=== PATIENT | female | born 1965 | race Caucasian/White ===

== ENCOUNTER 2017-01-13 23:31 | Emergency (ER) | payer BC, OTHER ==
[2017-01-13] MEDS ORDERED: Sodium Chloride 0.9% 1,000 ML IV SCH (23:45)
--- NOTE | 2017-01-13 23:47 | EDM.PDOC ---
ED HPI GENERAL MEDICAL PROBLEM - General Chief Complaint: Headache Stated Complaint: MIGRAINE Time Seen by Provider: 01/13/17 23:44 - History of Present Illness INITIAL COMMENTS - FREE TEXT/NARRATIVE: HISTORY AND PHYSICAL: History of present illness: Patient 51-year-old female with history of migraine headaches presents with a migraine headache there is associated photophobia nausea she denies any trauma denies fever chills neck pain stiffness or other concern Review of systems: As per history of present illness and below otherwise all systems reviewed and negative. Past medical history: As per history of present illness and as reviewed below otherwise noncontributory. Surgical history: As per history of present illness and as reviewed below otherwise noncontributory. Social history: No reported history of drug or alcohol abuse. Family history: As per history of present illness and as reviewed below otherwise noncontributory. Physical exam: HEENT: Atraumatic, normocephalic, pupils reactive, negative for conjunctival pallor or scleral icterus, mucous membranes moist, throat clear, neck supple, nontender, trachea midline. Lungs: Clear to auscultation, breath sounds equal bilaterally, chest nontender. Heart: S1S2, regular, negative for clicks, rubs, or JVD. Abdomen: Soft, nondistended, nontender. Negative for masses or hepatosplenomegaly. Negative for costovertebral tenderness. Pelvis: Stable nontender. Genitourinary: Deferred. Rectal: Deferred. Extremities: Atraumatic, negative for cords or calf pain. Neurovascular unremarkable. Neuro: Awake, alert, oriented. Cranial nerves II through XII unremarkable. Cerebellum unremarkable. Motor and sensory unremarkable throughout. Exam nonfocal. Diagnostics: None Therapeutics: Normal saline 1 L bolus Reglan 10 mg IV Zofran 4 mg IV Toradol 30 mg IV Benadryl 50 mg IV Impression: #1 migraine headache Definitive disposition and diagnosis as appropriate pending reevaluation and review of above. Headache Pain Score (Numeric/FACES): 10 - Related Data Allergies Allergy/AdvReac Type Severity Reaction Status Date / Time morphine Allergy Hives Verified 01/13/17 23:44 Home Meds: Home Meds SUMAtriptan Succinate [Imitrex] 100 mg PO ASDIRECTED PRN 01/13/17 [History] ED ROS GENERAL - Review of Systems Review Of Systems: ROS reveals no pertinent complaints other than HPI. ED EXAM, GENERAL - Physical Exam Exam: See Below (See dictation) Course - Vital Signs Last Recorded V/S: Last Vital Signs Temp 36.8 C 01/13/17 23:33 Pulse 67 01/13/17 23:33 Resp 16 01/13/17 23:33 BP 156/70 H 01/13/17 23:33 Pulse Ox 99 01/13/17 23:33 Departure - Departure Time of Disposition: 23:46 Disposition: Home, Self-Care 01 Condition: good Clinical Impression: Migraine Forms: ED Department Discharge Additional Instructions: The following information is given to patients seen in the emergency department who are being discharged to home. This information is to outline your options for follow-up care. We provide all patients seen in our emergency department with a follow-up referral. The need for follow-up, as well as the timing and circumstances, are variable depending upon the specifics of your emergency department visit. If you don't have a primary care physician on staff, we will provide you with a referral. We always advise you to contact your personal physician following an emergency department visit to inform them of the circumstance of the visit and for follow-up with them and/or the need for any referrals to a consulting specialist. The emergency department will also refer you to a specialist when appropriate. This referral assures that you have the opportunity for followup care with a specialist. All of these measure are taken in an effort to provide you with optimal care, which includes your followup. Under all circumstances we always encourage you to contact your private physician who remains a resource for coordinating your care. When calling for followup care, please make the office aware that this follow-up is from your recent emergency room visit. If for any reason you are refused follow-up, please contact the [facility] emergency department at and asked to speak to the emergency department charge nurse. Followup primary medical doctor one to 2 days return as needed as discussed
[2017-01-13] MEDS ORDERED: Ondansetron 4 MG/2 ML SDV IVPUSH ONE (23:51)
[2017-01-13] MEDS ORDERED: Metoclopramide 10 MG/2 ML SDV IVPUSH ONE (23:51)
[2017-01-13] MEDS ORDERED: diphenhydrAMINE 50 MG/ML SDV IVPUSH ONE (23:51)
[2017-01-13] MEDS ORDERED: Ketorolac 30 MG/ML SDV IVPUSH ONE (23:51)
[2017-01-14 00:49] VITALS: BP 120/61
== END 2017-01-14 00:52 | disposition home or self-care (01) ==
LOC: MW.ED 23:31
DX: G43.909 Migraine, unspecified, not intractable, without status migrainosus (principal); Z88.5 Allergy status to narcotic agent
CPT/HCPCS: 96361; 96374; 96375; 99283; J1200; J1885; J2405; J2765; J7040; 99284

== ENCOUNTER 2017-09-18 14:47 | Emergency (ER) | payer BC ==
[2017-09-18] MEDS ORDERED: HYDROmorphone 1 MG/ML Syringe IM ONE (15:10)
[2017-09-18] MEDS ORDERED: Ondansetron 4 MG Tab.DIS PO ONE (15:10)
[2017-09-18] MEDS ORDERED: Ketorolac 60 MG/2 ML SDV IM ONE (15:46)
--- NOTE | 2017-09-18 16:18 | EDM.PDOC ---
ED HPI GENERAL MEDICAL PROBLEM - General Chief Complaint: Headache Stated Complaint: headache Time Seen by Provider: 09/18/17 14:49 Source of Information: Reports: Patient History Limitations: Reports: No Limitations - History of Present Illness INITIAL COMMENTS - FREE TEXT/NARRATIVE: The following information is given to patients seen in the emergency department who are being discharged to home. This information is to outline your options for follow-up care. We provide all patients seen in our emergency department with a follow-up referral. The need for follow-up, as well as the timing and circumstances, are variable depending upon the specifics of your emergency department visit. If you don't have a primary care physician on staff, we will provide you with a referral. We always advise you to contact your personal physician following an emergency department visit to inform them of the circumstance of the visit and for follow-up with them and/or the need for any referrals to a consulting specialist. The emergency department will also refer you to a specialist when appropriate. This referral assures that you have the opportunity for follow-up care with a specialist. All of these measure are taken in an effort to provide you with optimal care, which includes your follow-up. Under all circumstances we always encourage you to contact your private physician who remains a resource for coordinating your care. When calling for follow-up care, please make the office aware that this follow-up is from your recent emergency room visit. If for any reason you are refused follow-up, please contact the [facility] Emergency Department at and asked to speak to the emergency department charge nurse. Follow up with primary care and return if symptoms worsen or change. 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: Neurological History: Reports: Migraines - Infectious Disease History Infectious Disease History: Reports: Chicken Pox, Scarlet Fever - Past Surgical History Female Surgical History: Reports: Section, Hysterectomy, Tubal Ligation, Other (See Below) Social & Family History - Family History Family Medical History: Noncontributory - Tobacco Use Smoking Status *Q: Never Smoker Years of Tobacco use: 20 Packs/Tins Daily: 1 - Caffeine Use Caffeine Use: Reports: Soda Caffeine Use Comment: 1-2 daily - Recreational Drug Use Recreational Drug Use: No ED ROS GENERAL - Review of Systems Review Of Systems: See Below (See history of present illness) - Physical Exam Exam: See Below (See history of present illness) Course - Vital Signs Last Recorded V/S: Last Vital Signs Temp 97.0 F 09/18/17 15:02 Pulse 100 09/18/17 15:02 Resp 16 09/18/17 15:02 BP 127/92 H 09/18/17 15:02 Pulse Ox 95 09/18/17 15:02 - Orders/Labs/Meds Meds: Medications Discontinued Medications Generic Name Dose Route Start Last Admin Trade Name Freq PRN Reason Stop Dose Admin Hydromorphone HCl 1 mg 09/18/17 15:10 09/18/17 15:29 Dilaudid IM 09/18/17 15:11 1 mg ONETIME ONE Administration Ketorolac Tromethamine 60 mg 09/18/17 15:46 09/18/17 16:09 Toradol IM 09/18/17 15:47 60 mg ONETIME ONE Administration Ondansetron HCl 4 mg 09/18/17 15:10 09/18/17 15:28 Zofran Odt PO 09/18/17 15:11 4 mg ONETIME ONE Administration Departure - Departure Time of Disposition: 16:18 Disposition: Home, Self-Care 01 Condition: Good Clinical Impression: Migraine headache Qualifiers: Migraine type: unspecified Status migrainosus presence: without status migrainosus Intractability: not intractable Qualified Code(s): G43.909 - Migraine, unspecified, not intractable, without status migrainosus - Discharge Information Referrals: PCP,None [Primary Care Provider] - Additional Instructions: The following information is given to patients seen in the emergency department who are being discharged to home. This information is to outline your options for follow-up care. We provide all patients seen in our emergency department with a follow-up referral. The need for follow-up, as well as the timing and circumstances, are variable depending upon the specifics of your emergency department visit. If you don't have a primary care physician on staff, we will provide you with a referral. We always advise you to contact your personal physician following an emergency department visit to inform them of the circumstance of the visit and for follow-up with them and/or the need for any referrals to a consulting specialist. The emergency department will also refer you to a specialist when appropriate. This referral assures that you have the opportunity for follow-up care with a specialist. All of these measure are taken in an effort to provide you with optimal care, which includes your follow-up. Under all circumstances we always encourage you to contact your private physician who remains a resource for coordinating your care. When calling for follow-up care, please make the office aware that this follow-up is from your recent emergency room visit. If for any reason you are refused follow-up, please contact the [facility] Emergency Department at and asked to speak to the emergency department charge nurse. Follow-up with primary care as directed [facility] [address] [place] [id number]
[2017-09-18 16:58] VITALS: BP 121/75
== END 2017-09-18 16:30 | disposition home or self-care (01) ==
LOC: MW.ED 14:47
DX: G43.909 Migraine, unspecified, not intractable, without status migrainosus (principal); Z88.5 Allergy status to narcotic agent
CPT/HCPCS: 96372; 99284; A9270; J1170; J1885; 99282

== ENCOUNTER 2018-12-04 16:18 | Emergency (ER) | payer BC ==
--- NOTE | 2018-12-04 17:18 | EDM.PDOC ---
ED HPI GENERAL MEDICAL PROBLEM - General Chief Complaint: Skin Complaint Stated Complaint: INJURED FINGER Time Seen by Provider: 12/04/18 17:18 Source of Information: Reports: Patient History Limitations: Reports: No Limitations - History of Present Illness INITIAL COMMENTS - FREE TEXT/NARRATIVE: HISTORY AND PHYSICAL: History of present illness: Patient is a 53-year-old female here with complaint of left ring finger infection. She states it started 6 days ago, was seen in [place] and started on Augmentin. She states it has not gotten better. She did have a small amount of purulent fluid expressed from it. She denies injury, fevers, or chills. Review of systems: As per history of present illness and below otherwise all systems reviewed and negative. Past medical history: As per history of present illness and as reviewed below otherwise noncontributory. Surgical history: As per history of present illness and as reviewed below otherwise noncontributory. Social history: No reported history of drug or alcohol abuse. Family history: As per history of present illness and as reviewed below otherwise noncontributory. Physical exam: General: Patient sitting comfortably in no acute distress and nontoxic appearing HEENT: Atraumatic, normocephalic, pupils reactive, negative for conjunctival pallor or scleral icterus, mucous membranes moist, throat clear, neck supple, nontender, trachea midline. No meningeal signs. Lungs: Clear to auscultation, breath sounds equal bilaterally, chest nontender. Heart: S1S2, regular, negative for clicks, rubs, or overt murmur. Abdomen: Soft, nondistended, nontender. Negative for masses or hepatosplenomegaly. Negative for costovertebral tenderness. Pelvis: Stable nontender. Genitourinary: Deferred. Rectal: Deferred. Extremities: Left distal ring finger is erythematous and swollen around the base of the nail. There is no drainage noted. No distinct area of fluctuance. Atraumatic, negative for cords or calf pain. Neurovascular unremarkable. Neuro: Awake, alert, oriented. Cranial nerves II through XII unremarkable. Cerebellum unremarkable. Motor and sensory unremarkable throughout. Exam nonfocal. Notes: Diagnostics: x-ray left ring finger Therapeutics: 1g Rocephin IM Prescriptions: Bactrim Impression: Finger cellulitis Plan: 1. Take antibiotic as instructed. Warm soaks and tylenol or motrin as needed. 2. Follow up with primary care provider 3. Return to ED as needed as discussed Definitive disposition and diagnosis as appropriate pending reevaluation and review of above. 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 ED EXAM, SKIN/RASH Exam: See Below (see dictation) Course - Vital Signs Last Recorded V/S: Last Vital Signs Temp 97.2 F 12/04/18 17:13 Pulse 88 12/04/18 17:13 Resp 18 12/04/18 17:13 BP 109/72 12/04/18 17:13 Pulse Ox 98 12/04/18 17:13 - Orders/Labs/Meds Orders: Active Orders 24 hr Category Date Time Status Fingers Fourth Digit Lt F3 [CR] Stat Exams 12/04/18 17:22 Taken Departure - Departure Time of Disposition: 18:53 Disposition: Home, Self-Care 01 Condition: Good Clinical Impression: Cellulitis, finger - Discharge Information Prescriptions: Sulfamethoxazole/Trimethoprim [Bactrim Ds Tablet] 1 each PO BID 7 Days #14 tablet Referrals: PCP,Unknown [Primary Care Provider] - Forms: ED Department Discharge Additional Instructions: The following information is given to patients seen in the emergency department who are being discharged to home. This information is to outline your options for follow-up care. We provide all patients seen in our emergency department with a follow-up referral. The need for follow-up, as well as the timing and circumstances, are variable depending upon the specifics of your emergency department visit. If you don't have a primary care physician on staff, we will provide you with a referral. We always advise you to contact your personal physician following an emergency department visit to inform them of the circumstance of the visit and for follow-up with them and/or the need for any referrals to a consulting specialist. The emergency department will also refer you to a specialist when appropriate. This referral assures that you have the opportunity for follow-up care with a specialist. All of these measure are taken in an effort to provide you with optimal care, which includes your follow-up. Under all circumstances we always encourage you to contact your private physician who remains a resource for coordinating your care. When calling for follow-up care, please make the office aware that this follow-up is from your recent emergency room visit. If for any reason you are refused follow-up, please contact the [facility] Emergency Department at and asked to speak to the emergency department charge nurse. [facility] [address] [place] [id number] [place] [address] 1. Take antibiotic as instructed. Warm soaks and tylenol or motrin as needed. 2. Follow up with primary care provider 3. Return to ED as needed as discussed - My Orders Last 24 Hours: My Active Orders 12/04/18 17:22 Fingers Fourth Digit Lt F3 [CR] Stat - Assessment/Plan Last 24 Hours: My Active Orders 12/04/18 17:22 Fingers Fourth Digit Lt F3 [CR] Stat
[2018-12-04] MEDS ORDERED: cefTRIAXone 1 GM in Lidocaine 1% 4 ML IM ONE (18:51)
[2018-12-04 19:40] VITALS: BP 122/70
--- NOTE | 2018-12-05 12:05 | CR ---
EXAM DATE: 12/04/18 PATIENT'S AGE: 53 Patient: ALLISON GARRETT Facility: [place], [place] Site . Site : [id number] Study: XRay Extremity Left 4th digit [id number]/[id number] 5:50:40 PM Ordering Physician: Doctor Kemp Final Report: Indication: Redness and swelling Technique: Left 4th finger 3 views Comparison: None Findings: Bones: Alignment is normal. No fractures or bone lesions. Joint spaces: Unremarkable. Soft tissues: Unremarkable. Impression: Unremarkable left 4th finger. No finding to explain redness and swelling. Dictated by Juliano Smith MD @ Dec 04 2018 6:23PM (Electronic Signature) Report Signed by Proxy. SYLVESTER
== END 2018-12-04 19:37 | disposition home or self-care (01) ==
LOC: MW.ED 16:18
DX: L03.012 Cellulitis of left finger (principal); Z88.5 Allergy status to narcotic agent; Z79.899 Other long term (current) drug therapy
CPT/HCPCS: 73140; 96372; 99283; J0696; J2001; 99282

== ENCOUNTER 2019-06-11 07:02 | Emergency (ER) | payer BC ==
[2019-06-11 07:12] VITALS: BP 177/140
== END 2019-06-11 07:26 | disposition left against medical advice (07) ==
LOC: MW.ED 07:02
DX: Z53.21 Procedure and treatment not carried out due to patient leaving prior to being seen by health care provider (principal)

== ENCOUNTER 2019-09-15 17:55 | Emergency (ER) | payer BC ==
[2019-09-15] MEDS ORDERED: Metoclopramide 10 MG/2 ML SDV IV ONE (18:17)
[2019-09-15] MEDS ORDERED: diphenhydrAMINE 50 MG/ML SDV IVPUSH ONE (18:17)
[2019-09-15] MEDS ORDERED: Sodium Chloride 0.9% 1,000 ML IV ONE (18:17)
[2019-09-15] MEDS ORDERED: Ketorolac 30 MG/ML SDV IVPUSH ONE (18:17)
[2019-09-15] MEDS ORDERED: Ondansetron 4 MG/2 ML SDV IVPUSH ONE (18:17)
--- NOTE | 2019-09-15 19:00 | EDM.PDOC ---
ED HPI GENERAL MEDICAL PROBLEM - General Chief Complaint: Headache Stated Complaint: HEADACHE Time Seen by Provider: 09/15/19 18:10 Source of Information: Reports: Patient History Limitations: Reports: No Limitations - History of Present Illness INITIAL COMMENTS - FREE TEXT/NARRATIVE: HISTORY AND PHYSICAL: History of present illness: Patient is a 53-year-old female presents to the ED today with concern of migraine headache since last night. Patient states she has taken her sumatriptan at home without relief of symptoms. Patient states her migraine is her usual type migraine and just hasn't gone away with medication at home. Patient states she has not taken any other medication other than the sumatriptan at home. Patient states she does have photophobia and some nausea which is typical of her migraine headaches. Patient denies any other symptoms or concerns. Patient denies fever, chills, chest pain, shortness of breath, or cough. Denies neck stiff ness, change in vision, syncope, or near syncope. Denies nausea, vomiting, abdominal pain, diarrhea, constipation, or dysuria. Has not noted any blood in urine or stool. Patient has been eating and drinking appropriately. Review of systems: As per history of present illness and below otherwise all systems reviewed and negative. Past medical history: As per history of present illness and as reviewed below otherwise noncontributory. Surgical history: As per history of present illness and as reviewed below otherwise noncontributory. Social history: See social history for further information Family history: As per history of present illness and as reviewed below otherwise noncontributory. Physical exam: General: Patient is alert, oriented, and in no acute distress. Patient laying comfortably on exam table. HEENT: Atraumatic, normocephalic, pupils equal and reactive bilaterally, negative for conjunctival pallor or scleral icterus, mucous membranes moist, TMs normal bilaterally, throat clear, neck supple, nontender, trachea midline. No drooling or trismus noted. No meningeal signs. No hot potato voice noted. Lungs: Clear to auscultation, breath sounds equal bilaterally, chest nontender. Heart: S1S2, regular rate and rhythm without overt murmur Abdomen: Soft, nondistended, nontender. Negative for masses or hepatosplenomegaly. Negative for costovertebral tenderness. Pelvis: Stable nontender. Genitourinary: Deferred. Rectal: Deferred. Skin: Intact, warm, dry. No lesions or rashes noted. Extremities: Atraumatic, negative for cords or calf pain. Neurovascular unremarkable. Neuro: Awake, alert, oriented. Cranial nerves II through XII unremarkable. Cerebellum unremarkable. Motor and sensory unremarkable throughout. Exam nonfocal. Notes: Patient expresses resolution of her migraine headache today in the ED. Discussed the importance for follow-up with her primary care provider or neurologist. Voices understanding and is agreeable to plan of care. Denies any further questions or concerns at this time. Diagnostics: None Therapeutics: Saline, Toradol, Zofran (Patient declines Reglan and Benadryl) Prescription: None Impression: Migraine headache Plan: 1. You can alternate ibuprofen and Tylenol as directed for pain and discomfort. 2. Encourage small but frequent sips of fluid to prevent dehydration. 3. Follow up with her primary care provider or neurologist as discussed. Return to the ED as needed and as discussed. Definitive disposition and diagnosis as appropriate pending reevaluation and review of above. 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: Neurological History: Reports: Migraines Psychiatric History: Reports: Anxiety, Depression - Infectious Disease History Infectious Disease History: Reports: Chicken Pox, Measles, Mumps - Past Surgical History HEENT Surgical History: Reports: Eye Surgery Female Surgical History: Reports: Section, Hysterectomy, Tubal Ligation, Other (See Below) Social & Family History - Family History Family Medical History: Noncontributory - Caffeine Use Caffeine Use: Reports: Soda Caffeine Use Comment: 1-2 daily - Recreational Drug Use Recreational Drug Use: No ED ROS GENERAL - Review of Systems Review Of Systems: Comprehensive ROS is negative, except as noted in HPI. ED EXAM, GENERAL - Physical Exam Exam: See Below (see dictation) Course - Vital Signs Last Recorded V/S: Last Vital Signs Temp 97.0 F 09/15/19 18:11 Pulse 73 09/15/19 18:11 Resp 18 09/15/19 18:11 BP 137/71 09/15/19 18:11 Pulse Ox 96 09/15/19 18:11 - Orders/Labs/Meds Meds: Medications Discontinued Medications Generic Name Dose Route Start Last Admin Trade Name Choco PRN Reason Stop Dose Admin Diphenhydramine HCl 50 mg 09/15/19 18:17 09/15/19 18:44 Benadryl IVPUSH 09/15/19 18:18 Not Given ONETIME ONE Sodium Chloride 1,000 mls @ 999 mls/hr 09/15/19 18:17 09/15/19 18:41 Normal Saline IV 09/15/19 19:17 999 mls/hr STAT ONE Administration Ketorolac Tromethamine 30 mg 09/15/19 18:17 09/15/19 18:40 Toradol IVPUSH 09/15/19 18:18 30 mg ONETIME ONE Administration Metoclopramide HCl 10 mg 09/15/19 18:17 09/15/19 18:44 Reglan IV 09/15/19 18:18 Not Given ONETIME ONE Ondansetron HCl 4 mg 09/15/19 18:17 09/15/19 18:40 Zofran IVPUSH 09/15/19 18:18 4 mg ONETIME ONE Administration Departure - Departure Time of Disposition: 19:38 Disposition: Home, Self-Care 01 Clinical Impression: Migraine headache Qualifiers: Migraine type: unspecified Status migrainosus presence: without status migrainosus Intractability: not intractable Qualified Code(s): G43.909 - Migraine, unspecified, not intractable, without status migrainosus - Discharge Information Referrals: Mariana Dumas MD [Primary Care Provider] - Forms: ED Department Discharge Additional Instructions: The following information is given to patients seen in the emergency department who are being discharged to home. This information is to outline your options for follow-up care. We provide all patients seen in our emergency department with a follow-up referral. The need for follow-up, as well as the timing and circumstances, are variable depending upon the specifics of your emergency department visit. If you don't have a primary care physician on staff, we will provide you with a referral. We always advise you to contact your personal physician following an emergency department visit to inform them of the circumstance of the visit and for follow-up with them and/or the need for any referrals to a consulting specialist. The emergency department will also refer you to a specialist when appropriate. This referral assures that you have the opportunity for follow-up care with a specialist. All of these measure are taken in an effort to provide you with optimal care, which includes your follow-up. Under all circumstances we always encourage you to contact your private physician who remains a resource for coordinating your care. When calling for follow-up care, please make the office aware that this follow-up is from your recent emergency room visit. If for any reason you are refused follow-up, please contact the [facility] Emergency Department at and asked to speak to the emergency department charge nurse. [facility] [address] [place] [id number] [place] [address] 1. You can alternate ibuprofen and Tylenol as directed for pain and discomfort. 2. Encourage small but frequent sips of fluid to prevent dehydration. 3. Follow up with her primary care provider or neurologist as discussed. Return to the ED as needed and as discussed.
[2019-09-15 21:16] VITALS: BP 113/41; PULSE 67
== END 2019-09-15 19:50 | disposition home or self-care (01) ==
LOC: MW.ED 17:55
DX: G43.909 Migraine, unspecified, not intractable, without status migrainosus (principal); F41.9 Anxiety disorder, unspecified; F32.9 Major depressive disorder, single episode, unspecified; Z88.5 Allergy status to narcotic agent; Z79.899 Other long term (current) drug therapy
CPT/HCPCS: 96361; 96374; 96375; 99284; J1885; J2405; J7030; 99283

== ENCOUNTER 2019-11-12 07:14 | Day surgery (SDC) | payer BC ==
[~2019-11-12 07:14] MED LIST: Lactated Ringers 1,000 ML IV SCH; Midazolam 1 MG/ML 2 ML SDV ONE; Propofol 200 MG/20 ML SDV ONE; Sodium Chloride 0.9% 10 ML SDV IV PRN; Sodium Chloride 0.9% 10 ML Syringe FLUSH PRN; Sodium Chloride 0.9% 2.5 ML Syringe FLUSH PRN
--- NOTE | 2019-11-12 08:10 | PCM.PREANE ---
Preanesthetic Assessment - Anesthesia/Transfusion/Family Hx Anesthesia History: Prior Anesthesia Without Reaction Family History of Anesthesia Reaction: No Transfusion History: No Prior Transfusion(s) - Review of Systems General: No Symptoms Pulmonary: No Symptoms Cardiovascular: No Symptoms Gastrointestinal: No Symptoms Neurological: No Symptoms Other: Reports: None - Physical Assessment Vital Signs: Last Vital Signs Temp 97.2 F 11/12/19 07:32 Pulse 85 11/12/19 07:32 Resp 16 11/12/19 07:32 BP 131/71 11/12/19 07:32 Pulse Ox 98 11/12/19 07:32 Height: 5 ft 6 in Weight: 81.647 kg ASA Class: 2 Mental Status: Alert & Oriented x3 Airway Class: Mallampati = 2 Dentition: Reports: Normal Dentition ROM/Head Extension: Full Lungs: Clear to Auscultation, Normal Respiratory Effort Cardiovascular: Regular Rate, Regular Rhythm - Allergies Allergies/Adverse Reactions: Allergies Allergy/AdvReac Type Severity Reaction Status Date / Time morphine Allergy Hives Verified 11/12/19 07:49 mushroom Allergy Swelling Verified 11/12/19 07:49 - Blood Blood Available: No - Anesthesia Plan Pre-Op Medication Ordered: None - Acknowledgements Anesthesia Type Planned: General Anesthesia Pt an Appropriate Candidate for the Planned Anesthesia: Yes Alternatives and Risks of Anesthesia Discussed w Pt/Guardian: Yes Pt/Guardian Understands and Agrees with Anesthesia Plan: Yes Additional Comments: PMH: adhd, migraine PLAN: tiva PreAnesthesia Questionnaire Other HEENT History: wears glasses Cardiovascular History: Reports: High Cholesterol Other Cardiovascular History: Cholesterol level is down due to diet and exercise AUDIT SPEC History: Reports: Musculoskeletal History: Reports: Fracture, Neck Pain, Chronic Other Musculoskeletal History: hx of fx left arm as a child Neurological History: Reports: Migraines Psychiatric History: Reports: ADHD Oncologic (Cancer) History: Reports: Basal Cell Carcinoma Other Oncologic History: removed from neck Dermatologic History: Reports: Other (See Below) Other Dermatologic History: hx of tinia versicolor - Infectious Disease History Infectious Disease History: Reports: Chicken Pox, Measles, Mumps - Past Surgical History Head Surgeries/Procedures: Reports: None HEENT Surgical History: Reports: Eye Surgery Other HEENT Surgeries/Procedures: hx of eye muscle surgery x3 as a child Female Surgical History: Reports: Breast Implant, Section, Hysterectomy, Salpingo-Oophorectomy, Other (See Below) Other Female Surgeries/Procedures: hx of urethral dilatation as a child Dermatological Surgical History: Reports: Skin Biopsy - SUBSTANCE USE Smoking Status *Q: Former Smoker Tobacco Use Within Last Twelve Months: Vaping Recreational Drug Use History: No - HOME MEDS Home Medications: Home Meds Dextroamphetamine Sulfate [Dexedrine] 15 mg PO DAILY 12/04/18 [History] SUMAtriptan [Imitrex] 100 mg PO ASDIRECTED MDD 200 mg 09/15/19 [History] Aspirin [Adult Low Dose Aspirin EC] 81 mg PO DAILY 11/06/19 [History] Folic Acid 0.8 mg PO DAILY 11/06/19 [History] Rosuvastatin Calcium 5 mg PO DAILY 11/06/19 [History] SUMAtriptan Succinate [Imitrex] 4 mg IM ASDIRECTED PRN 11/06/19 [History] - CURRENT (IN HOUSE) MEDS Current Meds: Current Medications Lactated Ringer's (Ringers, Lactated) 1,000 mls @ 125 mls/hr IV ASDIRECTED SARAH Last Admin: 11/12/19 07:37 Dose: 125 mls/hr Sodium Chloride (Saline Flush) 10 ml FLUSH ASDIRECTED PRN PRN Reason: Keep Vein Open Sodium Chloride (Saline Flush) 2.5 ml FLUSH ASDIRECTED PRN PRN Reason: Keep Vein Open Sodium Chloride (Saline Flush) 10 ml FLUSH ASDIRECTED PRN PRN Reason: Keep Vein Open Sodium Chloride (Saline Flush) 2.5 ml FLUSH ASDIRECTED PRN PRN Reason: Keep Vein Open Sodium Chloride (Normal Saline) 10 ml IV ASDIRECTED PRN PRN Reason: IV Use Discontinued Medications Midazolam HCl (Versed 1 Mg/Ml) Confirm Administered Dose 2 mg .ROUTE .STK-MED ONE Stop: 11/12/19 07:08 Propofol (Diprivan 20 Ml) Confirm Administered Dose 400 mg .ROUTE .STK-MED ONE Stop: 11/12/19 07:08
[2019-11-12] MEDS ORDERED: Propofol 200 MG/20 ML SDV ONE (08:59)
[2019-11-12] MEDS ORDERED: Midazolam 1 MG/ML 2 ML SDV ONE (08:59)
--- NOTE | 2019-11-12 09:52 | PCM.OPNOTE ---
- General Post-Op/Procedure Note Date of Surgery/Procedure: 11/12/19 Operative Procedure(s): screening colonoscopy Findings: sigmoid colon polyp Pre Op Diagnosis: Screening colonoscopy Post-Op Diagnosis: sigmoid colon polyp Anesthesia Technique: MAC Primary Surgeon: Kelly Harden Condition: Good
--- NOTE | 2019-11-12 09:58 | PCM.POSTAN ---
POST ANESTHESIA ASSESSMENT - MENTAL STATUS Mental Status: Alert, Oriented - VITAL SIGNS Vital Signs: Last Vital Signs Temp 97.2 F 11/12/19 07:32 Pulse 72 11/12/19 09:52 Resp 21 H 11/12/19 09:52 BP 96/62 11/12/19 09:52 Pulse Ox 95 11/12/19 09:52 - RESPIRATORY Respiratory Status: Respiratory Rate WNL, Airway Patent, O2 Saturation Stable - CARDIOVASCULAR CV Status: Pulse Rate WNL, Blood Pressure Stable - GASTROINTESTINAL GI Status: No Symptoms - POST OP HYDRATION Hydration Status: Adequate & Stable
--- NOTE | 2019-11-12 09:59 | PCM48HPAN ---
Post Anesthesia Note - EVALUATION WITHIN 48HRS OF ANESTHETIC Vital Signs in Normal Range: Yes Patient Participated in Evaluation: Yes Respiratory Function Stable: Yes Airway Patent: Yes Cardiovascular Function Stable: Yes Hydration Status Stable: Yes Pain Control Satisfactory: Yes Nausea and Vomiting Control Satisfactory: Yes Mental Status Recovered: Yes Vital Signs: Last Vital Signs Temp 97.2 F 11/12/19 07:32 Pulse 72 11/12/19 09:52 Resp 21 H 11/12/19 09:52 BP 96/62 11/12/19 09:52 Pulse Ox 95 11/12/19 09:52
[2019-11-12 10:15] VITALS: BP 114/76; PULSE 73
--- NOTE | 2019-11-12 12:30 | OR ---
SURGEON: KELLY HARDEN MD DATE OF PROCEDURE: 11/12/2019 PREOPERATIVE DIAGNOSIS: Screening colonoscopy. POSTOPERATIVE DIAGNOSIS: Sigmoid colon polyp. PROCEDURE PERFORMED: Screening colonoscopy. PRIMARY SURGEON: Kelly Harden MD. ANESTHESIA: MAC. INSTRUMENT USED: Olympus colonoscope. EXTENT OF EXAM: To the cecum. PREPARATION: Good. LIMITATIONS: None. INDICATIONS FOR EXAMINATION: The patient is a 53-year-old female who presents for screening colonoscopy. The patient and I discussed the procedure; expected perioperative course; and risks including bleeding, infection, or damage to surrounding structures including perforation. The patient verbalized understanding and wishes to proceed. PROCEDURE IN DETAIL: The patient was brought into the endoscopy suite and placed in the left lateral decubitus position. A time-out was completed verifying the patient's name, age, date of , allergies, and procedure to be performed. A well-lubricated colonoscope was inserted in the rectum and advanced under direct visualization to the level of the cecum. The cecum was identified by both visual and anatomic landmarks. A photograph was taken of the cecal cap as well as with the scope retroflexed within the cecum. Scope was then fully withdrawn while examining the color, texture, anatomy, and integrity of the mucosa from the cecum to the anal canal. The patient was found to have a small sessile polyp in the very distal sigmoid colon. This was removed in piecemeal fashion using cold biopsy forceps. The scope was then brought into the rectum and retroflexed to allow visualization of the anal canal opening. This appeared normal and a photograph was taken. Scope was then straightened out and fully withdrawn. The cecum to anus time was 9 minutes. The patient tolerated the procedure well and was transferred to the PACU in stable condition. ENDOSCOPIC DIAGNOSIS: Sigmoid colon polyp. RECOMMENDATIONS: Follow up in clinic in 2 weeks. ROSALIND / BEN /[id number]
== END 2019-11-12 10:52 | disposition home or self-care (01) ==
LOC: MW.SDS 07:14
PROVIDERS: ATTEND Surgery
DX: Z12.11 Encounter for screening for malignant neoplasm of colon (principal); K63.5 Polyp of colon; F98.8 Other specified behavioral and emotional disorders with onset usually occurring in childhood and adolescence; E78.5 Hyperlipidemia, unspecified; G43.909 Migraine, unspecified, not intractable, without status migrainosus; E78.00 Pure hypercholesterolemia, unspecified; Z88.5 Allergy status to narcotic agent; Z79.82 Long term (current) use of aspirin; Z79.899 Other long term (current) drug therapy; Z87.891 Personal history of nicotine dependence; Z91.018 Allergy to other foods
CPT/HCPCS: 45380; 88305; J2250; J2704; J7120

== ENCOUNTER 2021-03-29 06:51 | Day surgery (SDC) | payer BC, OTHER ==
[2021-03-29] MEDS ORDERED: Midazolam 1 MG/ML 2 ML SDV ONE (07:14)
[2021-03-29] MEDS ORDERED: fentaNYL 100 MCG/2 ML SDV ONE (07:14)
[2021-03-29] MEDS ORDERED: Ondansetron 4 MG/2 ML SDV ONE (07:14)
[2021-03-29] MEDS ORDERED: Propofol 200 MG/20 ML SDV ONE ×2 (07:14→09:00)
[2021-03-29] MEDS ORDERED: Ketorolac 30 MG/ML SDV ONE (07:15)
[2021-03-29] MEDS ORDERED: Dexamethasone 4 MG/ML 5 ML MDV ONE (07:15)
[2021-03-29] MEDS ORDERED: Sodium Chloride 0.9% 20 ML ONE (07:15)
[2021-03-29] MEDS ORDERED: Glycopyrrolate 0.2 MG/ML SDV ONE (07:15)
[2021-03-29] MEDS ORDERED: ceFAZolin 1 GM Vial ONE (07:15)
[2021-03-29] MEDS ORDERED: Bupivacaine 0.5% 30 ML SDV ONE (07:20)
--- NOTE | 2021-03-29 07:31 | PCM.PREANE ---
Preanesthetic Assessment - Anesthesia/Transfusion/Family Hx Anesthesia History: Prior Anesthesia Without Reaction Transfusion History: No Prior Transfusion(s) - Review of Systems General: No Symptoms Pulmonary: No Symptoms Cardiovascular: No Symptoms Gastrointestinal: No Symptoms Neurological: No Symptoms Other: Reports: None - Physical Assessment NPO Status Date: 03/29/21 NPO Status Time: 00:00 Vital Signs: Last Vital Signs Temp 97.5 F 03/29/21 06:59 Pulse 77 03/29/21 06:59 Resp 15 03/29/21 06:59 BP 116/70 03/29/21 06:59 Pulse Ox 95 03/29/21 06:59 Height: 5 ft 6 in Weight: 199 lb ASA Class: 2 Mental Status: Alert & Oriented x3 Dentition: Reports: Normal Dentition ROM/Head Extension: Full Lungs: Clear to Auscultation, Normal Respiratory Effort Cardiovascular: Regular Rate, Regular Rhythm - Allergies Allergies/Adverse Reactions: Allergies Allergy/AdvReac Type Severity Reaction Status Date / Time morphine Allergy Hives Verified 03/23/21 11:12 mushroom Allergy Swelling Verified 03/23/21 11:12 - Acknowledgements Anesthesia Type Planned: General Anesthesia Pt an Appropriate Candidate for the Planned Anesthesia: Yes Alternatives and Risks of Anesthesia Discussed w Pt/Guardian: Yes Pt/Guardian Understands and Agrees with Anesthesia Plan: Yes PreAnesthesia Questionnaire HEENT History: Reports: Other (See Below) Other HEENT History: wears glasses Cardiovascular History: Reports: None Other Cardiovascular History: Cholesterol level is down due to diet and exercise Respiratory History: Reports: None Gastrointestinal History: Reports: Colon Polyp, Other (See Below) Other Gastrointestinal History: occasional heartburn recently Genitourinary History: Reports: None 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: Musculoskeletal History: Reports: Fracture, Neck Pain, Chronic Other Musculoskeletal History: hx of fx arm as a child, current fx toe Neurological History: Reports: Concussion, Migraines Psychiatric History: Reports: ADHD, Anxiety, Depression Endocrine/Metabolic History: Reports: Obesity/BMI 30+ Hematologic History: Reports: None Immunologic History: Reports: None Oncologic (Cancer) History: Reports: Basal Cell Carcinoma Other Oncologic History: spot excised from neck Dermatologic History: Reports: Other (See Below) Other Dermatologic History: hx of Tinia Versicolor - Infectious Disease History Infectious Disease History: Reports: Chicken Pox, Measles, Mumps - Past Surgical History Head Surgeries/Procedures: Reports: None HEENT Surgical History: Reports: Eye Surgery Other HEENT Surgeries/Procedures: strabismus surgery x3 as a child Cardiovascular Surgical History: Reports: None Respiratory Surgical History: Reports: None GI Surgical History: Reports: Colonoscopy Female Surgical History: Reports: Breast Implant, Section, Hysterectomy, Oophorectomy, Tubal Ligation, Other (See Below) Other Female Surgeries/Procedures: hx of Urethral dilitation Endocrine Surgical History: Reports: None Neurological Surgical History: Reports: None Musculoskeletal Surgical History: Reports: None Dermatological Surgical History: Reports: None - SUBSTANCE USE Tobacco Use Status *Q: Former Tobacco User Tobacco Use Within Last Twelve Months: No Recreational Drug Use History: No - HOME MEDS Home Medications: Home Meds Dextroamphetamine Sulfate [Dexedrine] 15 mg PO DAILY 12/04/18 [History] SUMAtriptan [Imitrex] 100 mg PO ASDIRECTED PRN MDD 200 mg 09/15/19 [History] Aspirin [Adult Low Dose Aspirin EC] 81 mg PO DAILY 11/06/19 [History] Folic Acid 0.8 mg PO DAILY 11/06/19 [History] SUMAtriptan succinate [Imitrex] 4 mg IM ASDIRECTED PRN 11/06/19 [History] - CURRENT (IN HOUSE) MEDS Current Meds: Current Medications Lactated Ringer's (Ringers, Lactated) 1,000 mls @ 125 mls/hr IV ASDIRECTED SARAH Last Admin: 03/29/21 07:21 Dose: 125 mls/hr Documented by: Cefazolin Sodium/Dextrose 2 gm (/ Premix) 50 mls @ 100 mls/hr IV ONETIME ONE Stop: 03/29/21 08:29 Discontinued Medications Bupivacaine HCl (Bupivacaine 0.5% 30 Ml Sdv) Confirm Administered Dose 30 ml .ROUTE .STK-MED ONE Stop: 03/29/21 07:21 Cefazolin Sodium (Cefazolin 1 Gm Vial) Confirm Administered Dose 2 gm .ROUTE .STK-MED ONE Stop: 03/29/21 07:16 Dexamethasone (Dexamethasone 4 Mg/Ml 5 Ml Mdv) Confirm Administered Dose 20 mg .ROUTE .STK-MED ONE Stop: 03/29/21 07:16 Fentanyl (Fentanyl 100 Mcg/2 Ml Sdv) Confirm Administered Dose 200 mcg .ROUTE .STK-MED ONE Stop: 03/29/21 07:15 Glycopyrrolate (Glycopyrrolate 0.2 Mg/Ml Sdv) Confirm Administered Dose 0.2 mg .ROUTE .STK-MED ONE Stop: 03/29/21 07:16 Acetaminophen (Ofirmev 1000 Mg/100 Ml) Confirm Administered Dose 100 mls @ as directed .ROUTE .STK-MED ONE Stop: 03/29/21 07:15 Sodium Chloride (Normal Saline) Confirm Administered Dose 20 mls @ as directed .ROUTE .STK-MED ONE Stop: 03/29/21 07:16 Ketorolac Tromethamine (Ketorolac 30 Mg/Ml Sdv) Confirm Administered Dose 30 mg .ROUTE .STK-MED ONE Stop: 03/29/21 07:16 Midazolam HCl (Midazolam 1 Mg/Ml 2 Ml Sdv) Confirm Administered Dose 2 mg .ROUTE .STK-MED ONE Stop: 03/29/21 07:15 Ondansetron HCl (Ondansetron 4 Mg/2 Ml Sdv) Confirm Administered Dose 4 mg .ROUTE .STK-MED ONE Stop: 03/29/21 07:15 Propofol (Propofol 200 Mg/20 Ml Sdv) Confirm Administered Dose 600 mg .ROUTE .STK-MED ONE Stop: 03/29/21 07:15
[2021-03-29] MEDS ORDERED: Metoclopramide 10 MG/2 ML SDV IVPUSH PRN (07:32)
[2021-03-29] MEDS ORDERED: Naloxone 0.4 MG/ML Syringe IVPUSH PRN (07:32)
[2021-03-29] MEDS ORDERED: fentaNYL 100 MCG/2 ML SDV IVPUSH PRN ×2 (07:32→08:51)
[2021-03-29] MEDS ORDERED: Morphine 10 MG/ML Syringe IVPUSH PRN (07:32)
[2021-03-29] MEDS ORDERED: Ondansetron 4 MG/2 ML SDV IVPUSH PRN (07:32)
[2021-03-29] MEDS ORDERED: Albuterol 0.083% 2.5 MG/3 ML Neb Soln NEB PRN (07:32)
[2021-03-29] MEDS ORDERED: HYDROmorphone 2 MG/ML Syringe IVPUSH PRN (07:32)
[2021-03-29] MEDS ORDERED: ceFAZolin 2 GM in Premix Bag 1 BAG IV ONE (08:00)
[2021-03-29] MEDS ORDERED: Lactated Ringers 1,000 ML IV SCH (08:00)
--- NOTE | 2021-03-29 10:17 | PCM48HPAN ---
Post Anesthesia Note - EVALUATION WITHIN 48HRS OF ANESTHETIC Vital Signs in Normal Range: Yes Patient Participated in Evaluation: Yes Respiratory Function Stable: Yes Airway Patent: Yes Cardiovascular Function Stable: Yes Hydration Status Stable: Yes Pain Control Satisfactory: Yes Nausea and Vomiting Control Satisfactory: Yes Mental Status Recovered: Yes Vital Signs: Last Vital Signs Temp 97.9 F 03/29/21 09:49 Pulse 79 03/29/21 10:00 Resp 11 L 03/29/21 10:00 BP 112/52 L 03/29/21 10:00 Pulse Ox 95 03/29/21 10:00
--- NOTE | 2021-03-29 10:17 | PCM.POSTAN ---
POST ANESTHESIA ASSESSMENT - MENTAL STATUS Mental Status: Alert, Oriented - VITAL SIGNS Vital Signs: Last Vital Signs Temp 97.9 F 03/29/21 09:49 Pulse 79 03/29/21 10:00 Resp 11 L 03/29/21 10:00 BP 112/52 L 03/29/21 10:00 Pulse Ox 95 03/29/21 10:00 - RESPIRATORY Respiratory Status: Respiratory Rate WNL, Airway Patent, O2 Saturation Stable - CARDIOVASCULAR CV Status: Pulse Rate WNL, Blood Pressure Stable - GASTROINTESTINAL GI Status: No Symptoms - POST OP HYDRATION Hydration Status: Adequate & Stable
--- NOTE | 2021-03-29 10:19 | PCM.OPNOTE ---
- General Post-Op/Procedure Note Date of Surgery/Procedure: 03/29/21 Operative Procedure(s): proximal interphalangeal joint arthroplasty second toe right foot with temporary wire fixation Findings: consistent with diagnosis Pre Op Diagnosis: malunion proximal phalanx second toe right foot Post-Op Diagnosis: malunion proximal phalanx second toe right foot Anesthesia Technique: General LMA Primary Surgeon: Raul Petersen Pathology: bone from malunion of proximal phalanx second toe right foot EBL in mLs: 5 Condition: Good Free Text/Narrative:: Intake & Output 03/28/21 03/29/21 03/29/21 22:59 06:59 14:59 Intake Total 1450 Balance 1450 materials: 0.035" k-wire 4-0 vicryl 4-0 prolene injectables: 4 ml 0.5% marcaine plain tourniquet time: 56 min
[2021-03-29 10:50] VITALS: BP 118/62; PULSE 71
--- NOTE | 2021-03-29 11:16 | PN ---
The patient is a 55-year-old female. Date of surgery: March 29, 2021. Surgeon: Raul Petersen DPM PLANNED PROCEDURE: Proximal interphalangeal joint arthroplasty of the second toe, right foot, with temporary wire fixation. ALLERGIES: Morphine. PAST MEDICAL HISTORY: Blurry vision, bilateral chills, flu-like symptoms, folic acid deficiency, acute sinusitis, anemia, cluster headache, community-acquired pneumonia, depression, dyspareunia in female, hypercholesterolemia, obesity, paresthesia, vaginal discharge, immunization due, injury of toe, migraine, paresthesia/numbness, colon cancer screening, thoracic back pain, tinea versicolor. CURRENT MEDICATIONS: 1. Aspirin enteric-coated 81 mg oral tablet, delayed release, 1 tablet daily. 2. Dextroamphetamine sulfate ER 15 mg oral capsule, extended release, 24-hour, take 1 capsule daily. 3. Folic acid 0.8 mg oral capsule, take 1 capsule daily. 4. Sumatriptan succinate 100 mg oral tablet, take 1 tablet by mouth at the onset of headache, may repeat in 2 hours as needed. 5. Sumatriptan succinate 4 mg/0.5 mL subcutaneous solution, autoinjector, inject 0.5 mL daily as needed as directed. LABS: SARS-CoV-2 negative. White blood cell 9.2, red blood cell 4.74, hemoglobin 14.9, hematocrit 45.2, platelets 223. Sodium 142, potassium 4.3, chloride 106, CO2 of 27.3, random glucose 93, BUN 24, creatinine 1.0, INR 0.98. Chest x-ray was unremarkable. EKG showed normal sinus rhythm. The patient was cleared for surgery by Dr. Dumas. All the patient's questions have been asked and answered. No guarantees have been expressed or implied, and all risks and benefits have been thoroughly and repeatedly discussed with the patient. The patient presents for surgery as listed above today. RODNEY / BEN /[id number]
--- NOTE | 2021-03-29 22:34 | OR ---
SURGEON: Raul Petersen DPM DATE OF PROCEDURE: 03/29/2021 OPERATIVE PROCEDURE: Proximal interphalangeal joint arthroplasty, second toe, right foot, with temporary wire fixation. PREOPERATIVE DIAGNOSIS: Malunion of proximal phalanx, second toe, right foot. POSTOPERATIVE DIAGNOSIS: Malunion of proximal phalanx, second toe, right foot. ANESTHESIA: General LMA. PATHOLOGY: Bone from the malunion of the proximal phalanx of the second toe, right foot. ESTIMATED BLOOD LOSS: 5 mL. CONDITION: The patient tolerated the procedure and the anesthesia well with no complications noted. MATERIALS: 0.035 inch K-wire, 4-0 Vicryl, 4-0 Prolene. INJECTABLES: 4 mL of 0.5% Marcaine plain. JUSTIFICATION FOR PROCEDURE: The patient suffered a fracture of the mid to distal portion of the proximal phalanx of the second toe of the right foot and was treated for several months conservatively. However, she failed to adequately heal. The fracture site developed a malunion and was in pain on a daily basis. Therefore, the patient opted for the surgical option which is justified given the failure of conservative treatment, which included prolonged periods of nonweightbearing and restricted weightbearing. Risks and benefits were described, all patient questions answered, and no guarantees expressed or implied. Patient consented in writing for the procedure. PROCEDURE IN DETAIL: The patient was brought to the operating room and placed on the operating table in a supine position and anesthesia was induced. A time-out was performed verifying the written consent, the correctly marked site, and planned procedures. The patient was scrubbed and draped in the usual aseptic manner on the right lower extremity. Incision planning was done with a marking pen. Preoperative x-rays were taken. Esmarch bandage exsanguination was performed and the tourniquet which was located above the ankle was inflated to a pressure of 250 mmHg. An incision was made over the dorsal-central aspect of the second toe, from just distal to the metatarsophalangeal joint to the middle phalanx. The incision was deepened to the level of the tendon. The skin and subcutaneous tissue were retracted out of the way. Small bleeders were bovied as necessary. A transverse tenotomy was made over the proximal phalanx shaft of the extensor digitorum longus tendon, which was then reflected out of the way proximally and distally. TPS saw was used to cut the malunion portion which was the distal portion of the proximal phalanx, after the collateral ligaments were cut using a [place] blade. Once the desired portion of bone was cut and removed from the operative site, it was sent to Pathology for gross and histologic examination. Normal sterile saline was used to flush the site. 0.035 inch K-wire was inserted from the base of the middle phalanx, running from proximal to distal through the distal phalanx, and the tuft of the toe; and it was then retrograded proximally, aligning it with the remaining portion of the proximal phalanx, and terminating in the head of the second metatarsal. The extensor digitorum longus tendon was then repaired and sutured with 4-0 Vicryl suture after a portion of it was cut to shorten the tendon slightly to maintain physiologic tension. The K-wire was grasped with a needle driver sales, bent with a Bernstein tip, cut with a knitter wire mesh, and capped with a Jurgan ball. The subcutaneous layer was reapproximated with 4-0 Vicryl. The superficial skin was reapproximated with 4- 0 Prolene suture. The tourniquet was deflated following closure of the subcutaneous layer, and a tourniquet time of 56 minutes. Prompt hyperemic response was noted to all digits of the right foot. The dressings consisted of Betadine-soaked Xeroform gauze, 4 x 4 fluff gauze, and Kerlix roll. Prior to dressings, postoperative x-rays were taken. Juan bandage was used to secure the dressings. The patient tolerated the anesthesia and the procedure well with no complications noted or reported. 4 mL of 0.5% Marcaine plain was injected to the foot prior to applying dressings about the surgical site. After a brief stay in the recovery room, the patient was discharged with written and verbal instructions for postoperative care, nonweightbearing, and follow up with me in my office. The patient is going to talk to me over the weekend if not sooner. The patient will be seen no later than Saturday in my office. RODNEY / YOBANIL /[id number] [facility] HOSPITALCirilo
--- NOTE | 2021-03-30 14:47 | CR ---
Indication: Right 2nd toe wire fixation. Technique: Fluoroscopy provided during right 2nd toe wire fixation. 13.3 seconds fluoro time. 5 images. Comparison: Right foot radiographs 11/16/2020. Findings/Impression : Fluoroscopic images obtained during osteotomy of the head of the 2nd proximal phalanx with wire fixation. Dictated by Catherine Medina MD @ 03/30/2021 2:46:[address] Catherine Medina @ Mar 30 2021 2:46PM
== END 2021-03-29 11:30 | disposition home or self-care (01) ==
LOC: MW.SDS 06:51
PROVIDERS: ATTEND Podiatrist Foot & Ankle Surgery
DX: S92.511P Displaced fracture of proximal phalanx of right lesser toe(s), subsequent encounter for fracture with malunion (principal); E78.5 Hyperlipidemia, unspecified; E66.9 Obesity, unspecified; G43.909 Migraine, unspecified, not intractable, without status migrainosus; Z88.5 Allergy status to narcotic agent; Z79.82 Long term (current) use of aspirin; Z79.899 Other long term (current) drug therapy; Z98.890 Other specified postprocedural states; Z91.018 Allergy to other foods; Z68.32 Body mass index [BMI] 32.0-32.9, adult
CPT/HCPCS: 28899; 88304; 88311; J0131; J0690; J1100; J1885; J2250; J2704; J3490; J7120; 01480; J2405; J3010

== ENCOUNTER 2022-02-22 06:50 | Day surgery (SDC) | payer BC ==
[2022-02-22] MEDS ORDERED: Morphine 4 MG/ML VIAL IVPUSH PRN (07:23)
[2022-02-22] MEDS ORDERED: Naloxone 0.4 MG/ML SDV IVPUSH PRN (07:23)
[2022-02-22] MEDS ORDERED: Ondansetron 4 MG/2 ML SDV IVPUSH PRN (07:23)
[2022-02-22] MEDS ORDERED: Albuterol 0.083% 2.5 MG/3 ML Neb Soln NEB PRN (07:23)
[2022-02-22] MEDS ORDERED: HYDROmorphone 1 MG/ML Syringe IVPUSH PRN (07:23)
[2022-02-22] MEDS ORDERED: fentaNYL 100 MCG/2 ML SDV IVPUSH PRN (07:23)
[2022-02-22] MEDS ORDERED: Metoclopramide 10 MG/2 ML SDV IVPUSH PRN (07:23)
[2022-02-22] MEDS ORDERED: Propofol 200 MG/20 ML SDV ONE (07:29)
[2022-02-22] MEDS ORDERED: fentaNYL 250 MCG/5 ML SDV ONE (07:30)
[2022-02-22] MEDS ORDERED: Lactated Ringers 1,000 ML IV SCH (07:30)
[2022-02-22] MEDS ORDERED: Fluorescein 5 ML Vial ONE (07:37)
[2022-02-22] MEDS ORDERED: Famotidine 20 MG/2 ML SDV ONE (07:52)
[2022-02-22] MEDS ORDERED: Dexamethasone 4 MG/ML 5 ML MDV ONE (08:14)
[2022-02-22] MEDS ORDERED: Ketorolac 30 MG/ML SDV ONE (08:14)
[2022-02-22] MEDS ORDERED: Ondansetron 4 MG/2 ML SDV ONE (08:14)
[2022-02-22 10:32] VITALS: BP 106/53; PULSE 64
== END 2022-02-22 10:12 | disposition home or self-care (01) ==
LOC: MW.SDS 06:50
PROVIDERS: ATTEND Obstetrics & Gynecology
DX: N39.3 Stress incontinence (female) (male) (principal); E66.9 Obesity, unspecified; G43.909 Migraine, unspecified, not intractable, without status migrainosus; F32.A Depression, unspecified; E78.5 Hyperlipidemia, unspecified; Z79.899 Other long term (current) drug therapy; Z88.8 Allergy status to other drugs, medicaments and biological substances; Z98.890 Other specified postprocedural states; Z68.33 Body mass index [BMI] 33.0-33.9, adult
CPT/HCPCS: 57288; J0131; J1100; J1885; J2405; J2704; J3010; J3490; J7120; 00860

== ENCOUNTER 2022-07-23 10:25 | Emergency (ER) | payer BC ==
[2022-07-23] MEDS ORDERED: Ondansetron 4 MG Tab.DIS PO ONE (12:10)
[2022-07-23] MEDS ORDERED: Ketorolac 60 MG/2 ML SDV IM ONE (12:11)
[2022-07-23] MEDS ORDERED: Orphenadrine 60 MG/2 ML Inj IM ONE (12:11)
[2022-07-23] MEDS ORDERED: Diazepam 5 MG Tab PO ONE (12:11)
== END 2022-07-23 14:25 | disposition home or self-care (01) ==
LOC: MW.ED 10:25
DX: M54.42 Lumbago with sciatica, left side (principal); Z88.6 Allergy status to analgesic agent
CPT/HCPCS: 72131; 96372; 99283; A9270; J1885; J2360

== ENCOUNTER 2022-09-30 20:00 | Emergency (ER) | payer BC ==
[2022-09-30] MEDS ORDERED: Orphenadrine 60 MG/2 ML Inj IM ONE (20:30)
[2022-09-30] MEDS ORDERED: Ketorolac 60 MG/2 ML SDV IM ONE (20:31)
[2022-09-30] MEDS ORDERED: Diazepam 2 MG Tab PO ONE (20:31)
[2022-09-30 21:08] VITALS: BP 108/66; PULSE 74
== END 2022-09-30 21:07 | disposition home or self-care (01) ==
LOC: MW.ED 20:00
DX: M54.41 Lumbago with sciatica, right side (principal); M54.42 Lumbago with sciatica, left side; E66.9 Obesity, unspecified; Z68.33 Body mass index [BMI] 33.0-33.9, adult; Z88.5 Allergy status to narcotic agent; Z91.018 Allergy to other foods
CPT/HCPCS: 96372; 99283; A9270; J1885; J2360

== ENCOUNTER 2022-10-27 11:55 | Emergency (ER) | payer BC ==
[2022-10-27] MEDS ORDERED: Sodium Chloride 0.9% 10 ML Syringe FLUSH PRN (12:37)
[2022-10-27] MEDS ORDERED: Sodium Chloride 0.9% 2.5 ML Syringe FLUSH PRN (12:37)
[2022-10-27 13:02] LABS: CARBON DIOXIDE,CO2 25.7 mmol/L (21.0-32.0); POTASSIUM,K 3.9 mmol/L (3.5-5.1)
[2022-10-27 19:30] VITALS: BP 122/85; PULSE 78
== END 2022-10-27 19:26 | disposition home or self-care (01) ==
LOC: MW.ED 11:55
DX: R05.3 Chronic cough (principal); E66.9 Obesity, unspecified; Z68.33 Body mass index [BMI] 33.0-33.9, adult; F17.210 Nicotine dependence, cigarettes, uncomplicated; Z88.6 Allergy status to analgesic agent; Z91.018 Allergy to other foods; Z79.899 Other long term (current) drug therapy
CPT/HCPCS: 36415; 71045; 80053; 83690; 83880; 85025; 85379; 85610; 93005; 99285; J3490

== ENCOUNTER 2024-01-10 13:59 | Inpatient (IN) | payer BC ==
[2024-01-10] MEDS: Ketorolac 30 MG/ML SDV IVPUSH ONE (14:31)
[2024-01-10] MEDS: Sodium Chloride 0.9% 10 ML Syringe FLUSH PRN (14:32)
[2024-01-10] MEDS: Ondansetron 4 MG/2 ML SDV IVPUSH ONE (14:32)
[2024-01-10] MEDS: Sodium Chloride 0.9% 2.5 ML Syringe FLUSH PRN (14:32)
[2024-01-10] MEDS: Sodium Chloride 0.9% 1,000 ML IV ONE ×2 (14:32→17:58)
[2024-01-10] MEDS: Alum Hydro/Mag Hydro/Simeth XS 15 ML, Lidocaine 2% 5 ML PO ONE (14:33)
[2024-01-10 14:50] LABS: BASOPHILS ABSOLUTE AUTO 0.02 K/uL (0.00-0.20); BASOPHILS PERCENT AUTO 0.1 % (0.0-1.0); EOSINOPHILS ABSOLUTE AUTO 0.03 K/uL (0.00-0.45); EOSINOPHILS PERCENT AUTO 0.2 % (0.0-6.0); HEMATOCRIT 41.7 % (37.0-47.0); HEMOGLOBIN 14.1 g/dL (12.0-16.0); IMMATURE GRAN ABSOLUTE AUTO 0.06 K/uL (0.00-0.05); IMMATURE GRAN PERCENT AUTO 0.4 % (0.0-0.4); LYMPHOCYTES PERCENT AUTO 11.1 % (24.0-44.0); MEAN CORPUSCULAR HEMOGLOBIN 30.3 pg (28.0-32.0); MEAN CORPUSCULAR HGB CONC 33.8 g/dL (32.0-36.0); MEAN CORPUSCULAR VOLUME 89.7 fL (83.0-99.0); MEAN PLATELET VOLUME 9.5 fL (9.4-12.3); MONOCYTES ABSOLUTE AUTO 0.89 K/uL (0.00-0.80); MONOCYTES PERCENT AUTO 5.8 % (0.0-8.0); NEUTROPHILS ABSOLUTE AUTO 12.56 K/uL (1.80-7.70); NEUTROPHILS PERCENT AUTO 82.4 % (41.0-71.0); PLATELET COUNT,PLT 242 K/uL (150-400); RED BLOOD CELL COUNT 4.65 M/uL (4.10-5.30); WHITE BLOOD CELL COUNT,WBC 15.26 K/uL (3.9-11.3)
[2024-01-10 15:21] LABS: ALBUMIN 3.6 g/dL (3.4-5.0); BILIRUBIN TOTAL 0.8 mg/dL (0.2-1.0); CALCIUM 9.1 mg/dL (8.5-10.1); CREATININE 0.9 mg/dL (0.6-1.0); EST CRCL DRUG DOSING (CG) 67.87 mL/min; POTASSIUM,K 4.2 mmol/L (3.5-5.1); PROTEIN TOTAL,TP 7.1 g/dL (6.4-8.2)
[2024-01-10] MEDS: Iopamidol 755 MG/ML 500 ML Multipack Bottle IVPUSH STA (16:00)
[2024-01-10 16:39] LABS: APPEARANCE,URINE CLEAR; BILIRUBIN,URINE NEGATIVE (NEGATIVE); COLOR,URINE YELLOW; GLUCOSE,URINE NEGATIVE (NEGATIVE); KETONES,URINE NEGATIVE (NEGATIVE); LEUKOCYTE ESTERASE,URINE NEGATIVE (NEGATIVE); NITRITE,URINE NEGATIVE (NEGATIVE); OCCULT BLOOD,URINE NEGATIVE (NEGATIVE); PH,URINE 5.5 (5.0-8.0); PROTEIN,URINE NEGATIVE (NEGATIVE); UROBILINOGEN,URINE 0.2 EU/dL (<2.0)
[2024-01-10] MEDS: Pantoprazole 40 MG in Sodium Chloride 0.9% 10 ML IVPUSH ONE (17:05)
[2024-01-10] MEDS: HYDROmorphone 1 MG/ML Syringe IVPUSH ONE (17:52)
[2024-01-10] MEDS: HYDROmorphone 1 MG/ML Syringe IVPUSH STA (21:27)
[2024-01-11] MEDS: Sodium Chloride 0.9% 1,000 ML IV SCH (00:17)
[2024-01-11] MEDS: HYDROmorphone 1 MG/ML Syringe IVPUSH PRN (00:17)
[2024-01-11 06:00] LABS: BASOPHILS ABSOLUTE AUTO 0.02 K/uL (0.00-0.20); BASOPHILS PERCENT AUTO 0.3 % (0.0-1.0); EOSINOPHILS ABSOLUTE AUTO 0.04 K/uL (0.00-0.45); EOSINOPHILS PERCENT AUTO 0.6 % (0.0-6.0); HEMATOCRIT 37.3 % (37.0-47.0); HEMOGLOBIN 12.3 g/dL (12.0-16.0); IMMATURE GRAN ABSOLUTE AUTO 0.02 K/uL (0.00-0.05); IMMATURE GRAN PERCENT AUTO 0.3 % (0.0-0.4); LYMPHOCYTES ABSOLUTE AUTO 1.89 K/uL (1.00-4.80); LYMPHOCYTES PERCENT AUTO 26.4 % (24.0-44.0); MEAN CORPUSCULAR HEMOGLOBIN 30.1 pg (28.0-32.0); MEAN CORPUSCULAR VOLUME 91.4 fL (83.0-99.0); MEAN PLATELET VOLUME 9.7 fL (9.4-12.3); MONOCYTES ABSOLUTE AUTO 0.43 K/uL (0.00-0.80); NEUTROPHILS ABSOLUTE AUTO 4.77 K/uL (1.80-7.70); NEUTROPHILS PERCENT AUTO 66.4 % (41.0-71.0); PLATELET COUNT,PLT 206 K/uL (150-400); RED BLOOD CELL COUNT 4.08 M/uL (4.10-5.30); WHITE BLOOD CELL COUNT,WBC 7.17 K/uL (3.9-11.3)
[2024-01-11 06:39] LABS: ALBUMIN 2.9 g/dL (3.4-5.0); BILIRUBIN TOTAL 0.5 mg/dL (0.2-1.0); CALCIUM 8.2 mg/dL (8.5-10.1); CARBON DIOXIDE,CO2 26.2 mmol/L (21.0-32.0); CREATININE 0.9 mg/dL (0.6-1.0); EST CRCL DRUG DOSING (CG) 67.87 mL/min; POTASSIUM,K 4.1 mmol/L (3.5-5.1); PROTEIN TOTAL,TP 5.9 g/dL (6.4-8.2)
[2024-01-11] MEDS: Sodium Chloride 0.9% 500 ML IV SCH (09:54)
[2024-01-11] MEDS: oxyCODONE 5 MG Tab PO PRN (11:27)
[2024-01-12 05:55] LABS: BASOPHILS ABSOLUTE AUTO 0.03 K/uL (0.00-0.20); BASOPHILS PERCENT AUTO 0.5 % (0.0-1.0); EOSINOPHILS ABSOLUTE AUTO 0.06 K/uL (0.00-0.45); HEMATOCRIT 34.4 % (37.0-47.0); HEMOGLOBIN 11.3 g/dL (12.0-16.0); IMMATURE GRAN ABSOLUTE AUTO 0.02 K/uL (0.00-0.05); IMMATURE GRAN PERCENT AUTO 0.3 % (0.0-0.4); LYMPHOCYTES ABSOLUTE AUTO 2.42 K/uL (1.00-4.80); LYMPHOCYTES PERCENT AUTO 39.8 % (24.0-44.0); MEAN CORPUSCULAR HEMOGLOBIN 30.5 pg (28.0-32.0); MEAN CORPUSCULAR HGB CONC 32.8 g/dL (32.0-36.0); MEAN CORPUSCULAR VOLUME 92.7 fL (83.0-99.0); MEAN PLATELET VOLUME 9.6 fL (9.4-12.3); MONOCYTES ABSOLUTE AUTO 0.39 K/uL (0.00-0.80); MONOCYTES PERCENT AUTO 6.4 % (0.0-8.0); NEUTROPHILS ABSOLUTE AUTO 3.16 K/uL (1.80-7.70); PLATELET COUNT,PLT 173 K/uL (150-400); RED BLOOD CELL COUNT 3.71 M/uL (4.10-5.30); WHITE BLOOD CELL COUNT,WBC 6.08 K/uL (3.9-11.3)
[2024-01-12 06:16] LABS: ALBUMIN 2.6 g/dL (3.4-5.0); BILIRUBIN TOTAL 0.3 mg/dL (0.2-1.0); C-REACTIVE PROTEIN 1.11 mg/dL (<0.3); CALCIUM 8.1 mg/dL (8.5-10.1); CREATININE 0.8 mg/dL (0.6-1.0); EST CRCL DRUG DOSING (CG) 76.36 mL/min; POTASSIUM,K 3.7 mmol/L (3.5-5.1); PROTEIN TOTAL,TP 5.2 g/dL (6.4-8.2)
[2024-01-12] MEDS: guaiFENesin 600 MG Tab.ER PO PRN (11:30)
[2024-01-13 05:35] LABS: BASOPHILS ABSOLUTE AUTO 0.04 K/uL (0.00-0.20); BASOPHILS PERCENT AUTO 0.5 % (0.0-1.0); EOSINOPHILS PERCENT AUTO 1.3 % (0.0-6.0); HEMATOCRIT 36.5 % (37.0-47.0); HEMOGLOBIN 12.3 g/dL (12.0-16.0); IMMATURE GRAN ABSOLUTE AUTO 0.02 K/uL (0.00-0.05); IMMATURE GRAN PERCENT AUTO 0.3 % (0.0-0.4); LYMPHOCYTES ABSOLUTE AUTO 2.38 K/uL (1.00-4.80); MEAN CORPUSCULAR HEMOGLOBIN 30.5 pg (28.0-32.0); MEAN CORPUSCULAR HGB CONC 33.7 g/dL (32.0-36.0); MEAN CORPUSCULAR VOLUME 90.6 fL (83.0-99.0); MEAN PLATELET VOLUME 9.7 fL (9.4-12.3); MONOCYTES PERCENT AUTO 7.6 % (0.0-8.0); NEUTROPHILS PERCENT AUTO 60.3 % (41.0-71.0); PLATELET COUNT,PLT 193 K/uL (150-400); RED BLOOD CELL COUNT 4.03 M/uL (4.10-5.30); WHITE BLOOD CELL COUNT,WBC 7.94 K/uL (3.9-11.3)
[2024-01-13 05:56] LABS: ALBUMIN 2.9 g/dL (3.4-5.0); BILIRUBIN TOTAL 0.4 mg/dL (0.2-1.0); C-REACTIVE PROTEIN 1.14 mg/dL (<0.3); CALCIUM 8.7 mg/dL (8.5-10.1); CARBON DIOXIDE,CO2 25.2 mmol/L (21.0-32.0); CREATININE 0.8 mg/dL (0.6-1.0); EST CRCL DRUG DOSING (CG) 76.36 mL/min; POTASSIUM,K 3.4 mmol/L (3.5-5.1); PROTEIN TOTAL,TP 5.9 g/dL (6.4-8.2)
[2024-01-13] MEDS: Potassium Chloride 20 MEQ Tab.ER PO ONE (08:50)
[2024-01-13] MEDS ORDERED: guaiFENesin 600 MG Tab.ER PO PRN (09:15)
[2024-01-13 12:35] VITALS: BP 108/75; PULSE 65
[2024-01-13] MEDS: Acetaminophen 325 MG Tab PO PRN (13:34)
== END 2024-01-13 15:40 | disposition home or self-care (01) | DRG 282 ==
LOC: MW.ED 13:59 → MW.MS 20:32 → OBSVTOIN 01-11 18:30
PROVIDERS: ADMIT Internal Medicine; ATTEND Internal Medicine
DX: K85.10 Biliary acute pancreatitis without necrosis or infection (principal); E66.9 Obesity, unspecified; F90.9 Attention-deficit hyperactivity disorder, unspecified type; G89.29 Other chronic pain; M54.2 Cervicalgia; D72.829 Elevated white blood cell count, unspecified; K76.0 Fatty (change of) liver, not elsewhere classified; Z88.5 Allergy status to narcotic agent; Z97.3 Presence of spectacles and contact lenses; Z91.018 Allergy to other foods; Z86.010 Personal history of colon polyps; Z90.710 Acquired absence of both cervix and uterus; Z68.27 Body mass index [BMI] 27.0-27.9, adult
CPT/HCPCS: 36415; 74177; 74177-26; 74181; 74181-26; 76705; 76705-26; 80053; 81003; 81025; 82947; 83690; 84478; 85025; 86140; 96361; 96374; 96375; 96376; 99284; 99285-25; A9270-GY; C9113; G0378; J1170; J1885; J2405; J3490; J7030; J7040; Q9967

== ENCOUNTER 2024-02-05 06:04 | Observation (INO) | payer BC ==
[2024-02-05 06:18] LABS: BASOPHILS ABSOLUTE AUTO 0.02 K/uL (0.00-0.20); BASOPHILS PERCENT AUTO 0.2 % (0.0-1.0); EOSINOPHILS ABSOLUTE AUTO 0.15 K/uL (0.00-0.45); EOSINOPHILS PERCENT AUTO 1.6 % (0.0-6.0); HEMATOCRIT 44.8 % (37.0-47.0); HEMOGLOBIN 15.2 g/dL (12.0-16.0); IMMATURE GRAN ABSOLUTE AUTO 0.03 K/uL (0.00-0.05); IMMATURE GRAN PERCENT AUTO 0.3 % (0.0-0.4); LYMPHOCYTES ABSOLUTE AUTO 2.78 K/uL (1.00-4.80); LYMPHOCYTES PERCENT AUTO 28.8 % (24.0-44.0); MEAN CORPUSCULAR HEMOGLOBIN 30.5 pg (28.0-32.0); MEAN CORPUSCULAR HGB CONC 33.9 g/dL (32.0-36.0); MEAN PLATELET VOLUME 9.9 fL (9.4-12.3); MONOCYTES ABSOLUTE AUTO 0.84 K/uL (0.00-0.80); MONOCYTES PERCENT AUTO 8.7 % (0.0-8.0); NEUTROPHILS ABSOLUTE AUTO 5.84 K/uL (1.80-7.70); NEUTROPHILS PERCENT AUTO 60.4 % (41.0-71.0); PLATELET COUNT,PLT 247 K/uL (150-400); RED BLOOD CELL COUNT 4.98 M/uL (4.10-5.30); WHITE BLOOD CELL COUNT,WBC 9.66 K/uL (3.9-11.3)
[2024-02-05] MEDS: Ondansetron 4 MG/2 ML SDV IVPUSH ONE ×2 (06:18→12:28)
[2024-02-05] MEDS: Ketorolac 30 MG/ML SDV IVPUSH ONE (06:18)
[2024-02-05] MEDS: Sodium Chloride 0.9% 1,000 ML IV ONE (06:18)
[2024-02-05] MEDS: HYDROmorphone 1 MG/ML Syringe IVPUSH ONE (06:19)
[2024-02-05 06:48] LABS: ALBUMIN 3.9 g/dL (3.4-5.0); BILIRUBIN TOTAL 0.5 mg/dL (0.2-1.0); CALCIUM 9.5 mg/dL (8.5-10.1); CARBON DIOXIDE,CO2 26.9 mmol/L (21.0-32.0); CREATININE 1.1 mg/dL (0.6-1.0); EST CRCL DRUG DOSING (CG) 53.46 mL/min; POTASSIUM,K 3.8 mmol/L (3.5-5.1); PROTEIN TOTAL,TP 7.8 g/dL (6.4-8.2)
[2024-02-05] MEDS: HYDROmorphone 0.5 MG/0.5 ML Syringe IVPUSH ONE ×2 (07:58→10:04)
[2024-02-05] MEDS: Piperacillin/Tazobactam 3.375 GM in Sodium Chloride 0.9% 100 ML IV ONE (13:49)
[2024-02-05] MEDS ORDERED: Albuterol/Ipratropium 3.0-0.5 MG/3 ML Neb Soln NEB PRN (15:35)
[2024-02-05] MEDS ORDERED: Acetaminophen 325 MG Tab PO PRN (15:35)
[2024-02-05] MEDS ORDERED: HYDROmorphone 2 MG/ML Syringe IVPUSH PRN (15:35)
[2024-02-05] MEDS: Sodium Chloride 0.9% 1,000 ML IV SCH ×2 (16:04→16:49)
[2024-02-05] MEDS: HYDROmorphone 0.5 MG/0.5 ML Syringe IVPUSH PRN (16:04)
[2024-02-05] MEDS: Enoxaparin 40 MG/0.4 ML Syringe SUBCUT SCH (16:04)
[2024-02-05] MEDS: Ondansetron 4 MG/2 ML SDV IVPUSH PRN (16:10)
[2024-02-05] MEDS: Pantoprazole 40 MG in Sodium Chloride 0.9% 10 ML IVPUSH SCH (17:39)
[2024-02-05] MEDS: Piperacillin/Tazobactam 4.5 GM in Sodium Chloride 0.9% 100 ML IV SCH (20:16)
[2024-02-06] MEDS: Dextrose 5%-0.9% NaCl 1,000 ML IV SCH (03:44)
[2024-02-06 04:14] VITALS: BP 106/55; PULSE 58
[2024-02-06 06:17] LABS: BASOPHILS ABSOLUTE AUTO 0.03 K/uL (0.00-0.20); BASOPHILS PERCENT AUTO 0.4 % (0.0-1.0); EOSINOPHILS ABSOLUTE AUTO 0.09 K/uL (0.00-0.45); EOSINOPHILS PERCENT AUTO 1.3 % (0.0-6.0); HEMATOCRIT 37.8 % (37.0-47.0); HEMOGLOBIN 12.4 g/dL (12.0-16.0); IMMATURE GRAN ABSOLUTE AUTO 0.02 K/uL (0.00-0.05); IMMATURE GRAN PERCENT AUTO 0.3 % (0.0-0.4); LYMPHOCYTES ABSOLUTE AUTO 1.69 K/uL (1.00-4.80); LYMPHOCYTES PERCENT AUTO 23.6 % (24.0-44.0); MEAN CORPUSCULAR HEMOGLOBIN 30.2 pg (28.0-32.0); MEAN CORPUSCULAR HGB CONC 32.8 g/dL (32.0-36.0); MEAN CORPUSCULAR VOLUME 92.2 fL (83.0-99.0); MEAN PLATELET VOLUME 9.8 fL (9.4-12.3); MONOCYTES ABSOLUTE AUTO 0.48 K/uL (0.00-0.80); MONOCYTES PERCENT AUTO 6.7 % (0.0-8.0); NEUTROPHILS ABSOLUTE AUTO 4.86 K/uL (1.80-7.70); NEUTROPHILS PERCENT AUTO 67.7 % (41.0-71.0); PLATELET COUNT,PLT 180 K/uL (150-400); WHITE BLOOD CELL COUNT,WBC 7.17 K/uL (3.9-11.3)
[2024-02-06] MEDS ORDERED: Sodium Chloride 0.9% 1,000 ML IV SCH (06:30)
[2024-02-06 06:55] LABS: A/G RATIO 0.9 (0.9-1.6); ALBUMIN 2.8 g/dL (3.4-5.0); BILIRUBIN TOTAL 0.6 mg/dL (0.2-1.0); CALCIUM 8.4 mg/dL (8.5-10.1); CARBON DIOXIDE,CO2 24.1 mmol/L (21.0-32.0); CREATININE 1.1 mg/dL (0.6-1.0); EST CRCL DRUG DOSING (CG) 53.46 mL/min; POTASSIUM,K 4.1 mmol/L (3.5-5.1); PROTEIN TOTAL,TP 5.9 g/dL (6.4-8.2)
== END 2024-02-06 14:29 | disposition home or self-care (01) ==
LOC: MW.ED 06:04 → MW.MS 15:20
PROVIDERS: ADMIT Family Medicine; ATTEND Family Medicine
DX: K85.10 Biliary acute pancreatitis without necrosis or infection (principal); K80.20 Calculus of gallbladder without cholecystitis without obstruction; K83.8 Other specified diseases of biliary tract; F90.9 Attention-deficit hyperactivity disorder, unspecified type; F17.210 Nicotine dependence, cigarettes, uncomplicated; Z79.899 Other long term (current) drug therapy; Z88.5 Allergy status to narcotic agent; Z91.018 Allergy to other foods
CPT/HCPCS: 36415; 74181; 76705; 80053; 82947; 83690; 85025; 96361; 96365; 96366; 96372; 96375; 96376; 99285; C9113; G0378; J1170; J1650; J1885; J2405; J2543; J3490; J7030; J7042; 99222; 99239; 99284

== ENCOUNTER 2024-02-10 06:26 | Inpatient (IN) | payer BC ==
[2024-02-10] MEDS: Scopalamine 1mg/3day Transdermal Patch TOP ONE (06:45)
[2024-02-10] MEDS: Lactated Ringers 1,000 ML IV SCH (07:05)
[2024-02-10] MEDS ORDERED: Morphine 2 MG/ML SYRINGE IVPUSH PRN (07:13)
[2024-02-10] MEDS ORDERED: Ondansetron 4 MG/2 ML SDV IVPUSH PRN (07:13)
[2024-02-10] MEDS ORDERED: Metoclopramide 10 MG/2 ML SDV IVPUSH PRN (07:13)
[2024-02-10] MEDS ORDERED: Naloxone 0.4 MG/ML SDV IVPUSH PRN ×2 (07:13→15:46)
[2024-02-10] MEDS ORDERED: droPERidol 5 MG/2 ML SDV IVPUSH PRN (07:13)
[2024-02-10] MEDS ORDERED: Albuterol 0.083% 2.5 MG/3 ML Neb Soln NEB PRN (07:13)
[2024-02-10] MEDS ORDERED: Bupivacaine 0.5% 30 ML SDV ONE ×2 (07:20→10:07)
[2024-02-10] MEDS ORDERED: ceFAZolin 1 GM Vial ONE ×2 (07:20→08:22)
[2024-02-10] MEDS ORDERED: Bupivacaine 0.5%/EPINEPHrine 1:200,000 30 ML SDV ONE (07:33)
[2024-02-10] MEDS ORDERED: Bupivacaine 0.25% 30 ML SDV ONE (07:34)
[2024-02-10] MEDS ORDERED: fentaNYL 100 MCG/2 ML SDV ONE ×2 (07:38→09:12)
[2024-02-10] MEDS ORDERED: Rocuronium Bromide 50 MG/5 ML Syringe ONE (07:38)
[2024-02-10] MEDS ORDERED: Lidocaine 2% 5 ML SDV ONE (07:38)
[2024-02-10] MEDS ORDERED: Sugammadex Sodium 200 MG/2 ML VIAL IV ONE (07:38)
[2024-02-10] MEDS ORDERED: Dexamethasone 4 MG/ML 5 ML MDV ONE (07:38)
[2024-02-10] MEDS ORDERED: Ondansetron 4 MG/2 ML SDV ONE ×2 (07:38→10:31)
[2024-02-10] MEDS ORDERED: Propofol 200 MG/20 ML SDV ONE (07:38)
[2024-02-10] MEDS ORDERED: Ketorolac 30 MG/ML SDV ONE (07:38)
[2024-02-10] MEDS: metroNIDAZOLE/Normal Saline 500 MG in Premix Bag 1 BAG IV ONE (07:40)
[2024-02-10] MEDS: metroNIDAZOLE/Normal Saline 100 ML ONE (07:44)
[2024-02-10] MEDS ORDERED: Indocyanine Green 25 MG SDV ONE (08:00)
[2024-02-10] MEDS ORDERED: Ketamine HCL/NACL, ISO-OSM 50 MG/5 ML Syringe ONE (08:22)
[2024-02-10] MEDS ORDERED: Morphine 4 MG/ML Syringe IVPUSH PRN (11:02)
[2024-02-10] MEDS: fentaNYL 50 MCG/ML SDV IVPUSH PRN (11:06)
[2024-02-10] MEDS: HYDROmorphone 1 MG/ML Syringe IVPUSH PRN (11:14)
[2024-02-10] MEDS ORDERED: Lactated Ringers 1,000 ML IV SCH (11:15)
[2024-02-10] MEDS: ceFAZolin 2 GM in Sodium Chloride 0.9% 50 ML IV ONE (14:05)
[2024-02-10] MEDS: Acetaminophen/HYDROcodone 325-5 MG Tab PO PRN (15:04)
[2024-02-10] MEDS: HYDROmorphone 0.5 MG/0.5 ML Syringe IVPUSH PRN (17:25)
[2024-02-13 04:16] VITALS: BP 109/66; PULSE 72
== END 2024-02-13 09:50 | disposition home or self-care (01) | DRG 263 ==
LOC: MW.SDS 06:26 → MW.MS 11:13
PROVIDERS: ADMIT Surgery; ATTEND Surgery
PROC: 0FJ44ZZ Inspection of Gallbladder, Percutaneous Endoscopic Approach (ICD-10-PCS; 2024-02-10)
PROC: 0FT40ZZ Resection of Gallbladder, Open Approach (ICD-10-PCS; principal; 2024-02-10 08:00)
DX: K80.10 Calculus of gallbladder with chronic cholecystitis without obstruction (principal); K85.10 Biliary acute pancreatitis without necrosis or infection; F32.A Depression, unspecified; G43.909 Migraine, unspecified, not intractable, without status migrainosus; K66.0 Peritoneal adhesions (postprocedural) (postinfection); F41.9 Anxiety disorder, unspecified; F17.210 Nicotine dependence, cigarettes, uncomplicated; Z88.5 Allergy status to narcotic agent; Z98.51 Tubal ligation status; Z97.3 Presence of spectacles and contact lenses; Z91.018 Allergy to other foods; Z86.010 Personal history of colon polyps; Z90.710 Acquired absence of both cervix and uterus; Z98.890 Other specified postprocedural states; Z79.899 Other long term (current) drug therapy
CPT/HCPCS: 64488; 82947; A9270-GY; J0131; J0665; J0690; J1100; J1170; J1836; J1885; J2405; J2704; J3010; J3490; J7120

== ENCOUNTER 2024-06-27 15:49 | Emergency (ER) | payer BC ==
[2024-06-27] MEDS: SUMAtriptan 6 MG/0.5 ML SDV SUBCUT ONE (16:16)
[2024-06-27 16:24] VITALS: BP 104/82; PULSE 92
== END 2024-06-27 17:53 | disposition home or self-care (01) ==
LOC: MW.ED 15:49
DX: G43.909 Migraine, unspecified, not intractable, without status migrainosus (principal); F17.210 Nicotine dependence, cigarettes, uncomplicated; Z90.710 Acquired absence of both cervix and uterus; Z79.899 Other long term (current) drug therapy; Z88.5 Allergy status to narcotic agent; Z91.018 Allergy to other foods; Z75.8 Other problems related to medical facilities and other health care
CPT/HCPCS: 96372; 99283; J3030